=== PATIENT | female | born 2000 | race Caucasian/White ===

== ENCOUNTER 2021-11-06 13:46 | Emergency (ER) | payer OTHER ==
[~2021-11-06] VITALS: Ht 162.6 cm; Wt 72.6 kg
[2021-11-06 15:55] VITALS: BP 120/79
[2021-11-06] MEDS ORDERED: NAPROSYN500 MG PO (15:55)
[2021-11-06] MEDS ORDERED: CYCLOBENZAPRINE10 MG PO (15:56)
[2021-11-06] MEDS ORDERED: ONDANSETRON HCL 4 MG ORAL DISINTEGRATING TAB PO ONE ×2 (16:00)
== END 2021-11-06 16:08 | disposition home or self-care (01) ==
LOC: FSED 14:01
DX: S00.83XA Contusion of other part of head, initial encounter (principal); S50.01XA Contusion of right elbow, initial encounter; V53.6XXA Passenger in pick-up truck or van injured in collision with car, pick-up truck or van in traffic accident, initial encounter; Y92.488 Other paved roadways as the place of occurrence of the external cause
CPT/HCPCS: 99283; Q0162